=== PATIENT | male | born 1950 | race African-American/Black ===

== ENCOUNTER 2020-03-27 05:14 | Inpatient (IN) ==
[2020-03-27] MEDS ORDERED: ceFAZolin 2,000 MG in PREMIX 1 EACH IV ONE (05:34)
[2020-03-27] MEDS ORDERED: ceFAZolin 1,000 MG VIAL ONE (06:02)
[2020-03-27] MEDS: LACTATED RINGERS 1,000 ML IV SCH ×5 (07:14→17:32)
[2020-03-27] MEDS ORDERED: HEPARIN/NACL 0.9% 2 UNITS/ML 3,000 ML IV ONE (07:24)
[2020-03-27] MEDS ORDERED: ONDANSETRON 4 MG/2 ML VIAL IV PRN ×2 (10:21→10:46)
[2020-03-27] MEDS ORDERED: HYDROmorphone 2 MG/1 ML VIAL IV PRN (10:21)
[2020-03-27] MEDS ORDERED: METHOCARBAMOL 500 MG TABLET PO PRN (10:24)
[2020-03-27] MEDS ORDERED: ASPIRIN CAFFEINE PO PRN (10:24)
[2020-03-27] MEDS: HYDROmorphone 2 MG/1 ML VIAL IV PRN ×2 (10:40→10:55)
[2020-03-27] MEDS ORDERED: HEPARIN 10,000 UNIT/10 ML VIAL ONE (10:42)
[2020-03-27] MEDS ORDERED: propofoL 200 MG/20 ML VIAL IV ONE (10:42)
[2020-03-27] MEDS ORDERED: HEPARIN/NACL 0.9% 2 UNITS/ML 500 ML IV ONE (10:42)
[2020-03-27] MEDS ORDERED: LIDOCAINE 1% 5 ML VIAL ONE (10:42)
[2020-03-27] MEDS ORDERED: SEVOFLURANE 1 UNIT/15 MINUTE INH ONE (10:42)
[2020-03-27] MEDS ORDERED: fentaNYL 100 MCG/2 ML VIAL ONE (10:43)
[2020-03-27] MEDS ORDERED: MIDAZOLAM 2 MG/2 ML VIAL ONE (10:43)
[2020-03-27] MEDS ORDERED: GLYCOPYRROLATE 0.4 MG/2 ML VIAL ONE (10:43)
[2020-03-27] MEDS ORDERED: NEOSTIGMINE 10 MG/10 ML VIAL ONE (10:43)
[2020-03-27] MEDS ORDERED: ePHEDrine 50 MG/ML VIAL ONE (10:44)
[2020-03-27] MEDS ORDERED: ROCURONIUM 100 MG/10 ML VIAL IV ONE (10:44)
[2020-03-27] MEDS ORDERED: MEPERIDINE 25 MG/1 ML VIAL IV PRN (11:03)
[2020-03-27 12:08] LABS: Hematocrit 37.6 VOL% (42.0-52.0); Hemoglobin 11.8 GM/DL (14.0-18.0)
[2020-03-27 12:25] LABS: Calcium 8.8 MG/DL (8.5-10.1); Osmolality,Calculated 278.5 MOS/KG (273-304)
[2020-03-27] MEDS: oxyCODONE/ACETAMINOPHEN 5-325 MG TABLET PO PRN ×2 (17:32→21:57)
[2020-03-28] MEDS: oxyCODONE/ACETAMINOPHEN 5-325 MG TABLET PO PRN ×2 (01:31→06:24)
[2020-03-28] MEDS: LACTATED RINGERS 1,000 ML IV SCH ×2 (01:33→10:36)
[2020-03-28 04:56] LABS: Basophils % 0.2 % (0.0-0.8); Eosinophils # 0.1 10*3/uL (0.0-0.87); Eosinophils % 2.5 % (0.00-10.9); Hematocrit 34.5 VOL% (42.0-52.0); Immature Granulocytes % 0.6 %; Immature Granulocytes Absolute 0.03 #; Lymphocytes # 0.9 10*3/uL (1.4-4.0); Lymphocytes % 19.7 % (21.2-54.2); Mean Corpuscular HGB Conc 31.9 GM/DL (32-36); Mean Corpuscular Volume 93.5 FL (87-102); Mean Platelet Volume 11.5 FL (9.6-12.0); Monocytes % 9.2 % (1.7-12.7); Neutrophils % 67.8 % (38.7-73.9); Platelet Count 101 T/CUMM (130-400); Red Blood Count 3.69 MC/CUMM (3.8-5.5); Red Cell Distribution Width 15.2 % (9.3-17.3); White Blood Count 4.8 T/CUMM (4-12)
[2020-03-28 05:22] LABS: Calcium 8.3 MG/DL (8.5-10.1); Osmolality,Calculated 273.8 MOS/KG (273-304)
[2020-03-28 05:24] LABS: Hypochromasia 1+; Platelet Estimate Decreased
[2020-03-28] MEDS ORDERED: MELOXICAM 7.5 MG TABLET PO SCH (09:00)
[2020-03-28] MEDS ORDERED: amLODIPine 10 MG TABLET PO SCH (09:00)
[2020-03-28 16:00] VITALS: BP 131/81
== END 2020-03-28 13:20 | disposition home or self-care (01) | DRG 269 ==
LOC: N.SDSINP 05:14 → N.4E 11:38
PROVIDERS: ADMIT Surgery; ATTEND Surgery
PROC: IRERAAA (2020-03-27 08:34)

== ENCOUNTER 2021-08-05 15:23 | Inpatient (IN) ==
[2021-08-05] MEDS ORDERED: ASPIRIN 325 MG TABLET PO STA (18:41)
[2021-08-05 19:27] LABS: Basophils % 0.3 % (0.0-0.8); Eosinophils # 0.1 10*3/uL (0.0-0.87); Eosinophils % 2.9 % (0.00-10.9); Hematocrit 44.5 VOL% (42.0-52.0); Hemoglobin 14.3 GM/DL (14.0-18.0); Immature Granulocytes % 0.5 %; Immature Granulocytes Absolute 0.02 #; Lymphocytes % 25.9 % (21.2-54.2); Mean Corpuscular HGB Conc 32.1 GM/DL (32-36); Mean Corpuscular Volume 92.7 FL (87-102); Mean Platelet Volume 11.5 FL (9.6-12.0); Monocytes % 10.3 % (1.7-12.7); Neutrophils % 60.1 % (38.7-73.9); Platelet Count 153 T/CUMM (130-400); Red Cell Distribution Width 14.6 % (9.3-17.3); White Blood Count 3.8 T/CUMM (4-12)
[2021-08-05 19:35] LABS: PT Patient Result 11.5 SECS (10.5-12.0)
[2021-08-05 19:40] LABS: PT Patient Result 11.4 SECS (10.5-12.0); Partial Thromboplastin Time 27.2 SECS (23.8-32.1)
[2021-08-05 19:46] LABS: Albumin 3.9 G/DL (3.4-5.0); Bilirubin,Total 0.5 MG/DL (0.20-1.00); Calcium 9.5 MG/DL (8.5-10.1); Osmolality,Calculated 267.2 MOS/KG (273-304); Potassium 4.9 MMOL/L (3.5-5.1); Total Protein 7.4 G/DL (6.4-8.2)
[2021-08-05] MEDS ORDERED: METHOCARBAMOL 500 MG TABLET PO PRN (21:04)
[2021-08-05] MEDS ORDERED: ACETAMINOPHEN 325 MG TABLET PO PRN (21:21)
[2021-08-05] MEDS ORDERED: ONDANSETRON 4 MG/2 ML VIAL IV PRN (21:21)
[2021-08-05] MEDS ORDERED: DEXTROSE 10% 250 ML BAG IV PRN (21:21)
[2021-08-05] MEDS ORDERED: GLUCAGON 1 MG VIAL IM PRN (21:21)
[2021-08-05 21:26] LABS: Bilirubin,Urine Negative (Negative); Blood, Urine Negative (Negative); Glucose,Urine (UA) Negative (Negative); Hyaline Casts,Urine 1 /LPF (0-3); Ketones,Urine 5 mg/dL (Negative); Mucus,Urine Occasional /LPF (Occasional); Nitrite,Urine Negative (Negative); Protein,Urine Negative; RBC,Urine 1 /HPF (0-4); Squamous Epithelial Cell,Urine Occasional /HPF (0-10); Urine Appearance CLEAR (Clear); Urine Color Yellow (Yellow); Urine Specific Gravity 1.017 (1.001-1.035)
[2021-08-06 02:31] LABS: Barbiturates Screen,Urine Negative (Negative); Benzodiazepines Screen,Urine Negative (Negative); Cannabinoid Screen,Urine Negative (Negative); Opiate Screen,Urine Negative (Negative); Phencyclidine Screen,Urine Negative (Negative)
[2021-08-06] MEDS: TAMSULOSIN 0.4 MG CAPSULE PO SCH ×2 (04:57→22:25)
[2021-08-06] MEDS: ROSUVASTATIN 20 MG TABLET PO SCH ×2 (04:57→22:25)
[2021-08-06 05:41] LABS: Basophils % 0.5 % (0.0-0.8); Eosinophils # 0.2 10*3/uL (0.0-0.87); Eosinophils % 3.9 % (0.00-10.9); Hematocrit 42.8 VOL% (42.0-52.0); Hemoglobin 13.9 GM/DL (14.0-18.0); Immature Granulocytes % 0.8 %; Immature Granulocytes Absolute 0.03 #; Lymphocytes # 1.2 10*3/uL (1.4-4.0); Lymphocytes % 29.6 % (21.2-54.2); Mean Corpuscular HGB Conc 32.5 GM/DL (32-36); Mean Corpuscular Volume 92.2 FL (87-102); Mean Platelet Volume 11.4 FL (9.6-12.0); Monocytes % 11.1 % (1.7-12.7); Neutrophils % 54.1 % (38.7-73.9); Platelet Count 148 T/CUMM (130-400); Red Blood Count 4.64 MC/CUMM (3.8-5.5); Red Cell Distribution Width 14.6 % (9.3-17.3); White Blood Count 3.9 T/CUMM (4-12)
[2021-08-06 06:06] LABS: Risk Ratio 4.95; Uric Acid 6.3 MG/DL (3.5-7.2); VLDL Cholesterol 26.8 MG/DL
[2021-08-06 06:24] LABS: Calcium 9.5 MG/DL (8.5-10.1); Osmolality,Calculated 265.4 MOS/KG (273-304); Potassium 4.2 MMOL/L (3.5-5.1); Thyroid Stimulating Hormone 3.32 uIU/ml (0.358-3.74)
[2021-08-06] MEDS ORDERED: ENOXAPARIN 40 MG/0.4 ML SYRINGE SUBCUT SCH (09:00)
[2021-08-06] MEDS ORDERED: allopurinoL 300 MG TABLET PO SCH (09:00)
[2021-08-06] MEDS ORDERED: ASPIRIN EC 325 MG TABLET PO SCH (09:00)
[2021-08-06] MEDS: PANTOPRAZOLE 40 MG TABLET PO SCH (10:06)
[2021-08-06] MEDS: NICOTINE 14 MG/24 HR PATCH TRANSDERM SCH (10:06)
[2021-08-06] MEDS: allopurinoL 100 MG TABLET PO SCH (10:07)
[2021-08-06] MEDS: FOLIC ACID 1 MG TABLET PO SCH (10:58)
[2021-08-06] MEDS: MULTIVITAMIN (BEROCCA) TABLET PO SCH (10:58)
[2021-08-06] MEDS: THIAMINE 100 MG TABLET PO SCH (10:58)
[2021-08-06] MEDS: DOCUSATE SODIUM 100 MG CAPSULE PO PRN (22:25)
[2021-08-07 05:09] LABS: Basophils % 0.3 % (0.0-0.8); Eosinophils # 0.1 10*3/uL (0.0-0.87); Eosinophils % 4.1 % (0.00-10.9); Hematocrit 41.1 VOL% (42.0-52.0); Hemoglobin 13.4 GM/DL (14.0-18.0); Immature Granulocytes % 0.3 %; Immature Granulocytes Absolute 0.01 #; Lymphocytes # 1.1 10*3/uL (1.4-4.0); Lymphocytes % 33.6 % (21.2-54.2); Mean Corpuscular HGB Conc 32.6 GM/DL (32-36); Mean Corpuscular Volume 92.6 FL (87-102); Mean Platelet Volume 10.9 FL (9.6-12.0); Monocytes % 12.4 % (1.7-12.7); Neutrophils % 49.3 % (38.7-73.9); Platelet Count 137 T/CUMM (130-400); Red Blood Count 4.44 MC/CUMM (3.8-5.5); Red Cell Distribution Width 14.5 % (9.3-17.3); White Blood Count 3.4 T/CUMM (4-12)
[2021-08-07 05:38] LABS: Folate 10.4 NG/ML (5.38-24.0)
[2021-08-07 05:39] LABS: Calcium 9.4 MG/DL (8.5-10.1); Osmolality,Calculated 270.1 MOS/KG (273-304); Potassium 4.4 MMOL/L (3.5-5.1)
[2021-08-07] MEDS: MULTIVITAMIN (BEROCCA) TABLET PO SCH (08:23)
[2021-08-07] MEDS: CLOPIDOGREL 75 MG TABLET PO SCH (08:23)
[2021-08-07] MEDS: FOLIC ACID 1 MG TABLET PO SCH (08:24)
[2021-08-07] MEDS: PANTOPRAZOLE 40 MG TABLET PO SCH (08:24)
[2021-08-07] MEDS: allopurinoL 100 MG TABLET PO SCH (08:25)
[2021-08-07] MEDS: THIAMINE 100 MG TABLET PO SCH (08:26)
[2021-08-07] MEDS: NICOTINE 14 MG/24 HR PATCH TRANSDERM SCH (08:27)
[2021-08-07] MEDS ORDERED: ASPIRIN EC 81 MG TABLET PO SCH ×2 (09:00)
[2021-08-07] MEDS: DOCUSATE SODIUM 100 MG CAPSULE PO PRN ×2 (12:11→21:54)
[2021-08-07] MEDS: CHOLECALCIFEROL 5,000 UNIT TABLET PO SCH ×2 (14:11→21:53)
[2021-08-07] MEDS: ROSUVASTATIN 20 MG TABLET PO SCH (21:53)
[2021-08-07] MEDS: TAMSULOSIN 0.4 MG CAPSULE PO SCH (21:53)
[2021-08-08 09:06] LABS: Basophils % 0.3 % (0.0-0.8); Eosinophils # 0.2 10*3/uL (0.0-0.87); Eosinophils % 4.4 % (0.00-10.9); Hematocrit 44.3 VOL% (42.0-52.0); Immature Granulocytes % 0.6 %; Immature Granulocytes Absolute 0.02 #; Lymphocytes # 1.1 10*3/uL (1.4-4.0); Lymphocytes % 29.9 % (21.2-54.2); Mean Corpuscular HGB Conc 31.6 GM/DL (32-36); Mean Corpuscular Volume 94.7 FL (87-102); Mean Platelet Volume 11.1 FL (9.6-12.0); Monocytes % 10.8 % (1.7-12.7); Platelet Count 150 T/CUMM (130-400); Red Blood Count 4.68 MC/CUMM (3.8-5.5); Red Cell Distribution Width 14.5 % (9.3-17.3); White Blood Count 3.6 T/CUMM (4-12)
[2021-08-08 09:36] LABS: Calcium 9.5 MG/DL (8.5-10.1)
[2021-08-08] MEDS: NICOTINE 14 MG/24 HR PATCH TRANSDERM SCH (10:26)
[2021-08-08] MEDS: MULTIVITAMIN (BEROCCA) TABLET PO SCH (10:27)
[2021-08-08] MEDS: CHOLECALCIFEROL 5,000 UNIT TABLET PO SCH (10:27)
[2021-08-08] MEDS: CLOPIDOGREL 75 MG TABLET PO SCH (10:28)
[2021-08-08] MEDS: PANTOPRAZOLE 40 MG TABLET PO SCH (10:28)
[2021-08-08] MEDS: allopurinoL 100 MG TABLET PO SCH (10:28)
[2021-08-08] MEDS: THIAMINE 100 MG TABLET PO SCH (10:29)
[2021-08-08] MEDS: FOLIC ACID 1 MG TABLET PO SCH (10:29)
[2021-08-08 15:57] VITALS: BP 136/46
[2021-08-09] MEDS ORDERED: lisinopriL 10 MG TABLET PO SCH (09:00)
== END 2021-08-08 16:23 | disposition swing bed (61) | DRG 65 ==
LOC: N.5E 15:23 → N.ED 15:23 → SUATTDRO 20:15 → N.5E 22:58 → SUATTDRO 08-07 10:21
PROVIDERS: ADMIT Hospitalist; ATTEND Internal Medicine